=== PATIENT | female | born 1990 | race Caucasian/White ===

== ENCOUNTER 2019-09-20 13:46 | Emergency (ER) | payer MEDICAID, SELFPAY ==
[2019-09-20 14:25] VITALS: BP 130/80; PULSE 93; RESP 21; TEMP 36.6; O2SAT 100; BMI 25.8
--- NOTE | 2019-09-20 14:32 | PC.NURSE ---
Patient seated in the waiting room. Will continue to monitor.
[2019-09-20 14:52] LABS: Basophils # 0.1 10^3/uL (0.0-0.1); Basophils % 0.4 %; Eosinophils # 0.3 10^3/uL (0.0-0.8); Eosinophils % 2.1 %; Hematocrit 33.9 % (37.0-47.0); Lymphocytes # 2.1 10^3/uL (0.8-4.8); Lymphocytes % 15.5 %; Mean Corpuscular HGB Conc 32.4 g/dL (30.0-36.0); Mean Corpuscular Hemoglobin 30.3 pg (28.0-34.0); Mean Corpuscular Volume 93.4 fL (81-99); Mean Platelet Volume 9.2 fL (7.4-10.4); Monocytes # 1.3 10^3/uL (0.2-0.9); Monocytes % 9.2 %; Neutrophils # 9.9 10^3/uL (1.8-7.7); Neutrophils % 72.4 %; Nucleated Red Blood Cells % 0 %; Platelet Count 376 10^3/cmm (130-400); Red Blood Count 3.63 10^6/uL (4.1-5.3); Red Cell Distribution Width 14.3 % (12.1-15.1); White Blood Count 13.7 10^3/uL (4.0-10.0)
[2019-09-20 15:04] LABS: Alanine Aminotransferase 7 U/L (0-33); Albumin Level 3.6 g/dL (3.5-5.2); Alkaline Phosphatase 71 IU/L (35-105); Anion Gap 12.3 (5-19); Aspartate Amino Transferase 12 U/L (0-32); Blood Urea Nitrogen 12 mg/dL (6-20); Calcium 9.3 mg/dL (8.5-10.5); Carbon Dioxide 27 mmol/L (22-29); Chloride 99 mmol/L (98-107); Glomerular Filtration Rate 48.1 mL/min (90-130); Glucose 90 mg/dL (74-109); Lipase 25 U/L (13-60); Potassium 3.3 mmol/L (3.5-5.1); Sodium 135 mmol/L (136-145); Total Bilirubin 0.5 mg/dL (0.15-1.2); Total Protein 7.6 g/dL (6.6-8.7)
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
--- NOTE | 2019-09-20 17:37 | CTR_ITS ---
PROCEDURE INFORMATION: Exam: CT Abdomen And Pelvis With Contrast Exam date and time: 09/20/2019 5:40 PM Age: 28 years old Clinical indication: Abdominal pain; Generalized; Prior surgery; Surgery date: 1-6 months; Additional info: Abd pain TECHNIQUE: Imaging protocol: Computed tomography of the abdomen and pelvis with intravenous contrast. Total DLP: 749.33 mGy-cm Radiation optimization: All CT scans at this facility use at least one of these dose optimization techniques: automated exposure control; mA and/or kV adjustment per patient size (includes targeted exams where dose is matched to clinical indication); or iterative reconstruction. Contrast material: OMNIPAQUE 300; Contrast volume: 95 ml; Contrast route: IV; COMPARISON: CT Chest/Abdomen/Pelvis w IV* 07/31/2019 9:10 AM FINDINGS: Liver: There is no focal abnormality within the liver. There is mild enlargement of the liver. Gallbladder and bile ducts: There has been a cholecystectomy. Pancreas: The pancreas is normal. Spleen: There is a new large cyst located centrally in the spleen at the site of the previous splenic laceration. This measures 7.8 x 9.5 x 9.3 cm and has a uniform thin slightly enhancing rim. This likely represents splenic cyst or seroma, however one could not entirely exclude infected collection. Correlation with clinical findings is suggested. Immediately posterior adjacent to the inferior border of the larger splenic collection there is a similar 3 cm sized collection. Adrenals: The adrenal glands are normal. Kidneys and ureters: The right kidney is normal. Left kidney is considerably smaller than on the previous examination and is mostly nonenhancing consistent with a predominantly infarcted left kidney. There are few areas of cortical enhancement in the left kidney which may represent some viable renal tissue. There is no evidence of hydronephrosis. Stomach and bowel: There are mildly dilated fluid-filled loops of small bowel, mainly proximal small bowel. Distal loops are nondilated but no definite point of transition is demonstrated. Findings could represent early or partial small bowel obstruction versus ileus. Clinical correlation and follow-up is suggested. Appendix: Not identified. Intraperitoneal space: There is a small amount of ascites within the pelvis. There is a loculated 5.5 x 2.7 by 3.5 cm sized fluid collection with 3 mm thick uniform enhancing rim which could represent small seroma however one could not exclude small abscess. Correlation with clinical findings is suggested. Vasculature: There are numerous vascular coils in the region of the splenic hilus. Lymph nodes: Unremarkable. No enlarged lymph nodes. Bladder: Unremarkable as visualized. Reproductive: Unremarkable as visualized. Bones/joints: Unremarkable. No acute fracture. Soft tissues: See Intraperitoneal Space Finding. CT/CT abdomen pelvis w con* [id number] IMPRESSION: 1. Mild hepatomegaly 2. Sequelae of prior splenic laceration with a large and a small splenic fluid collection which could represent splenic cyst, seroma, or infected fluid collection. Clinical correlation is suggested. Follow-up is recommended. 3. Loculated pelvic fluid collection with enhancing rim which could represent seroma or infected fluid collection. Clinical correlation is suggested. Follow-up recommended. 4. Ascites. 5. Infarcted left kidney 6. Mild ileus versus partial small bowel obstruction. Radiation Dose CTDIVOL = (mGy): DLP = 749.33 (mGy-cm)
[2019-09-20] MEDS: HYDROmorphone 1 mg/mL INJ 1 mL IVP (17:58)
[2019-09-20] MEDS: ondansetron 2 mg/ML SDV 2 mL 4 MG IVP (17:58)
[2019-09-20] MEDS: sodium chloride 0.9% 1,000 ML 999 ML IV (17:59)
[2019-09-20 18:08] VITALS: O2SAT 95
[2019-09-20 19:08] VITALS: BP 134/86; PULSE 69; RESP 16; O2SAT 98
[2019-09-20 20:01] LABS: HCG Qualitative Urine. Negative (Negative)
[2019-09-20 20:06] LABS: Glucose Urine UA Norm (Normal); Urine Appearance SL Hazy (CLEAR); Urine Color Dark Yellow (Yellow); pH Urine 5 (5-7)
[2019-09-20 20:07] LABS: Add Urine Microscopic? YES; Bilirubin Urine 1+ (NEGATIVE); Blood Urine 2+ (Negative); Ketones Urine Negative (Negative); Leukocyte Esterase Urine Negative (Negative); Nitrate Urine Negative (Negative); Protein Urine Trace (Negative); Urobilinogen Urine 4 mg/dL (Negative)
[2019-09-20 20:09] LABS: Add Urine Culture? Yes; Bacteria Urine 1+; Calcium Oxalate Crystals Urine 15-25 /hpf; Mucus Urine 2+; Squamous Epithelial Cell Urine 0-4 (0-5); WBC Urine 0-4 /hpf (0-5)
[2019-09-20 20:26] VITALS: BP 111/77; PULSE 72; RESP 18; O2SAT 99
--- NOTE | 2019-09-20 20:28 | PC.NURSE ---
TO CT SCAN PER CART
[2019-09-20 21:00] VITALS: BP 118/82; PULSE 70; RESP 16; O2SAT 98
[2019-09-20 22:11] VITALS: BP 117/87; PULSE 74; RESP 16; TEMP 36.7; O2SAT 98
== END 2019-09-20 22:27 | disposition home or self-care (01) ==
PROVIDERS: Emergency Provider Emergency Medicine; Family Provider Family Medicine; PCP Family Medicine
DX: R10.84 Generalized abdominal pain (principal); F17.210 Nicotine dependence, cigarettes, uncomplicated
CPT/HCPCS: 36415; 74177; 80053; 81001; 81025; 83690; 85025; 87086; 96360; 96361; 96374; 96375; 99283; A9270; J1170; J2405; J7030; Q9967